=== PATIENT | female | born 1945 | race Caucasian/White ===

== ENCOUNTER 2016-12-02 02:51 | Emergency (ER) | payer SELFPAY ==
[~2016-12-02] VITALS: Ht 157.5 cm; Wt 69.5 kg
[2016-12-02 02:59] VITALS: Ht 157.5 cm; Wt 69.5 kg
--- NOTE | 2016-12-02 03:15 | ERA ---
ER Documentation Chief Complaint Date/Time DATE: 12/02/16 TIME: 03:14 Chief Complaint left leg lac & CWP r/t fall from escalator HPI The patient is a 71-year-old female, presenting to the ER [place] She complained of superficial chest wall abrasion, left leg laceration, left knee pain, left foot pain, left wrist pain. She does not smoke or drink, did not have tetanus injection for many years Past medical history: Diabetes mellitus, hypertension Past surgical history: Appendectomy ROS All systems reviewed and are negative except as per history of present illness. Medications Home Meds Active Scripts Ibuprofen* (Motrin*) 600 Mg Tab, 600 MG PO Q6H Y for PAIN AND OR ELEVATED TEMP, #20 TAB Prov:DOYLE BOLAÑOS MD 12/02/16 Reported Medications Metformin* (Glucophage*) 850 Mg Tablet, 850 MG PO WITH BREAKFAST DINNE, #60 TAB 12/02/16 Calcium Carbonate (CALCIUM) 600 Mg Tablet, 600 MG PO BID, TAB 12/02/16 Irbesartan* (Irbesartan*) 300 Mg Tablet, 300 MG PO BID, TAB 12/02/16 Allergies Allergies: Coded Allergies: No Known Allergy (Unverified , 12/02/16) Physical Exam Vitals Vital Signs Date Time Temp Pulse Resp B/P Pulse Ox O2 Delivery O2 Flow Rate FiO2 12/02/16 02:59 97.1 62 18 217/88 99 Physical Exam Const: No acute distress. Head: Atraumatic. Eyes: Normal Conjunctiva. ENT: Normal External Ears, Nose and Mouth. Neck: Full range of motion. No meningismus. Resp: Clear to auscultation bilaterally. Cardio: Regular rate and rhythm, no murmurs. Superficial chest separation, no crepitus Abd: Soft, non distended, normal bowel sounds, non tender. Skin: No petechiae or rashes. Back: No midline or flank tenderness. Ext: No cyanosis, or edema. Minimal left wrist tenderness, no edema, no laceration. Left knee with crepitus, no ecchymosis, no laceration. Left flank with a small 2 cm laceration with minimal bleeding, no calf tenderness. Left ankle is without any tenderness. Left foot is with minimal edema and tenderness, no laceration Neur: Awake and alert. No focal deficit Psych: Normal Mood and Affect. Results 24 hrs Current Medications Medications (Trade) Dose Ordered Sig/Kuldip Route PRN Reason Start Time Stop Time Status Last Admin Dose Admin Diphtheria/ Tetanus/Acell Pertussis (Adacel) 0.5 ml ONCE ONCE IM* 12/02/16 03:30 12/02/16 03:31 DC 12/02/16 03:46 Acetaminophen/ Hydrocodone Bitart ([place] (5/325)) 1 tab ONCE ONCE PO 12/02/16 03:30 12/02/16 03:31 DC 12/02/16 03:45 Ondansetron HCl (Zofran Odt) 4 mg ONCE STAT ODT 12/02/16 03:24 12/02/16 03:28 DC 12/02/16 03:46 Lidocaine/ Epinephrine (Xylocaine 1%/ Epi) 30 ml ONCE STAT INJ 12/02/16 03:35 12/02/16 03:37 DC Dextrose (D50w Syringe) 50 ml STK-MED ONCE .ROUTE 12/02/16 04:47 12/02/16 04:48 DC Glucagon (Glucagen) 1 mg STK-MED ONCE .ROUTE 12/02/16 05:01 12/02/16 05:02 DC Procedures/[place] [id number] Radiology Main Line: [phone] DIAGNOSTIC IMAGING REPORT Patient: MIRIAM LEW : 1945 Age: 71 Sex: F MR #: [id number] DOS: 12/02/16 0000 Ordering MD: DOYLE BOLAÑOS MD Location: E/R Room/Bed: PROCEDURE: CHEST - 1 VIEW CLINICAL INDICATION: 71-year-old female with chest pain. TECHNIQUE: A single frontal AP portable view of the chest was performed. The images were reviewed on a PACS workstation. COMPARISON: None. FINDINGS: The cardiomediastinal silhouette has a normal appearance. There is no evidence for an infiltrate. There is no evidence for congestive heart failure. There is no evidence for pneumothorax. The osseous structures are intact. IMPRESSION: No evidence for active cardiopulmonary disease. .Cayden Venegas MD, MD Date Time Electronically viewed and signed by .Cayden Venegas MD, MD on 12/02/2016 04:21 .M/ CC: DOYLE BOLAÑOS MD [place] [address] Radiology Main Line: [phone] DIAGNOSTIC IMAGING REPORT Patient: MIRIAM LEW : 1945 Age: 71 Sex: F MR #: [id number] DOS: 12/02/16 0324 Ordering MD: DOYLE BOLAÑOS MD Location: E/R Room/Bed: PROCEDURE: LEFT WRIST - 3 VIEWS CLINICAL INDICATION: 71-year-old female with left wrist pain. TECHNIQUE: AP, lateral and oblique views of the left wrist were performed. The images reviewed on a PACS workstation. COMPARISON: None. FINDINGS: No evidence of fracture, dislocation, or subluxation is seen. There appears to be a small well corticated focus adjacent to the ulnar styloid region presumably from prior trauma. There is narrowing of the radiocarpal joint. The bone marrow mineralization is within normal limits. No radiopaque foreign body is seen. Soft tissue swelling is noted. IMPRESSION: 1. No evidence for acute fracture or dislocation. 2. Small well corticated focus adjacent to the ulnar styloid region presumably from prior fracture. Clinical correlation is necessary. 3. Degenerative changes within the radiocarpal joint. 4. Soft tissue swelling. .Cayden Venegas MD, MD Date Time Electronically viewed and signed by .Cayden Venegas MD, MD on 12/02/2016 04:23 .M/ CC: DOYLE BOLAÑOS MD [place] [address] Radiology Main Line: [phone] DIAGNOSTIC IMAGING REPORT Patient: MIRIAM LEW : 1945 Age: 71 Sex: F MR #: [id number] DOS: 12/02/16323 Ordering MD: DOYLE BOLAÑOS MD Location: E/R Room/Bed: PROCEDURE: LEFT TIBIA/FIBULAR - 4 VIEWS CLINICAL INDICATION: 71-year-old female with left lower extremity pain following trauma. TECHNIQUE: AP, lateral and oblique views of the left tibia and fibula were obtained. The images reviewed on a PACS workstation. COMPARISON: Left knee obtained concurrently. FINDINGS: There is no evidence for an acute fracture or dislocation. There is mild narrowing of the medial, lateral and patellofemoral compartments. The joint spaces otherwise appear intact. The bone marrow mineralization is within normal limits. IMPRESSION: 1. No acute fracture or dislocation. 2. Mild tricompartment knee degenerative changes. .Cayden Venegas MD, MD Date Time Electronically viewed and signed by .Cayden Venegas MD, MD on 12/02/2016 04:24 .M/ CC: DOYLE BOLAÑOS MD [place] [address] Radiology Main Line: [phone] DIAGNOSTIC IMAGING REPORT Patient: MIRIAM LEW : 1945 Age: 71 Sex: F MR #: [id number] DOS: 12/02/164 Ordering MD: DOYLE BOLAÑOS MD Location: E/R Room/Bed: PROCEDURE: LEFT KNEE - 3 VIEWS CLINICAL INDICATION: 71-year-old female with left knee pain following trauma. TECHNIQUE: AP, lateral and oblique view of the left knee were obtained. The images reviewed on a PACS workstation. COMPARISON: Left tibia/fibula obtained concurrently. FINDINGS: There is no evidence for an acute fracture or dislocation. There is mild narrowing of the medial, lateral and patellofemoral compartments with osteophyte formation. The bone marrow mineralization is within normal limits. No significant soft tissue swelling and joint effusion is noted. IMPRESSION: 1. No acute fracture or dislocation. 2. Mild tricompartment degenerative changes. .Cayden Venegas MD, MD Date Time Electronically viewed and signed by .Cayden Venegas MD, MD on 12/02/2016 04:25 .M/ CC: DOYLE BOLAÑOS MD [place] [address] Radiology Main Line: [phone] DIAGNOSTIC IMAGING REPORT Patient: MIRIAM LEW : 1945 Age: 71 Sex: F MR #: [id number] DOS: 12/02/16 0324 Ordering MD: DOYLE BOLAÑOS MD Location: E/R Room/Bed: PROCEDURE: XR Left Foot. CLINICAL INDICATION: Pain, fall TECHNIQUE: AP, lateral and oblique views of the left foot was obtained. The images were reviewed on a PACS workstation. COMPARISON: None. FINDINGS: No fracture or dislocation seen. Posterior calcaneal spur. IMPRESSION: No acute abnormality seen. RPTAT: HJES .Carlos Leal MD, MD Date Time Electronically viewed and signed by .Carlos Leal MD, MD on 12/02/2016 04:23 .S/ CC: DOYLE BOLAÑOS MD MEDICAL MAKING DECISION: The patient is a 70-year-old female, presenting with acute left wrist fracture, acute left leg laceration, acute left chest wall contusion, acute left foot pain. She was treated with Tdap IM, [place] 5 mg p.o. for pain, Zofran ODT for nausea with good response. Blood pressure improved. He was treated with a left wrist Velcro Laceration Repair by me: Anesthesia: 1% lidocaine locally Location: Left leg Tendon/Joint/Nerves: No injury Foreign body: None detected after copious irrigation and exploration Technique: Simple Interrupted Sutures Complexity: No subcutaneous sutures/mucosal repair/ edge excision Post Closure Length: 2cm Patient's bleeding was easily controlled in the department and there is no indication of anemia. No evidence of compartment syndrome, neurologic injury, vascular injury, open joint, tendon laceration, or foreign body. Patient is appropriate for outpatient follow up. 48 hour wound check. Scar minimization instructions given. Departure Diagnosis: Primary Impression: Laceration of lower extremity Additional Impressions: Wrist fracture, left Chest wall contusion Left foot pain Condition: Good Comments She was advised to return in 2 day for wound check, 10 day for suture removal I discussed the findings with the patient. I advised the patient to follow-up with the on-call orthopedist in about 2-3 days, sooner if needed and return if any concern. DOYLE BOLAÑOS MD December 02, 2016 03:15
[2016-12-02] MEDS ORDERED: ONDANSETRON (ODT) 4 MG TAB ODT STA (03:24)
[2016-12-02] MEDS ORDERED: DIPHTH/TET/ACEL PERTUSS (ADULT) 0.5 ML VIAL IM* ONE (03:30)
[2016-12-02] MEDS ORDERED: HYDROCODONE/APAP (5/325) TAB PO ONE (03:30)
[2016-12-02] MEDS ORDERED: LIDOCAINE 1%/EPI 30 ML INJ INJ STA (03:35)
--- NOTE | 2016-12-02 04:21 | RADRPT ---
PROCEDURE: CHEST - 1 VIEW CLINICAL INDICATION: 71-year-old female with chest pain. TECHNIQUE: A single frontal AP portable view of the chest was performed. The images were reviewed on a PACS workstation. COMPARISON: None. FINDINGS: The cardiomediastinal silhouette has a normal appearance. There is no evidence for an infiltrate. There is no evidence for congestive heart failure. There is no evidence for pneumothorax. The osseou s structures are intact. IMPRESSION: No evidence for active cardiopulmonary disease. .Cayden Venegas MD, MD Date Time Electronically viewed and signed by .Cayden Venegas MD, on 12/02/2016 04:21 .M/
--- NOTE | 2016-12-02 04:23 | RADRPT ---
PROCEDURE: XR Left Foot. CLINICAL INDICATION: Pain, fall TECHNIQUE: AP, lateral and oblique views of the left foot was obtained. The images were reviewed on a PACS workstation. COMPARISON: None. FINDINGS: No fracture or dislocation seen. Posterior calcaneal spur. IMPRESSION: No acute abnormality seen. RPTAT: HJES .Carlos Leal MD, MD Date Time Electronically viewed and signed by .Carlos Leal MD, on 12/02/2016 04:23 .S/
--- NOTE | 2016-12-02 04:23 | RADRPT ---
PROCEDURE: LEFT WRIST - 3 VIEWS CLINICAL INDICATION: 71-year-old female with left wrist pain. TECHNIQUE: AP, lateral and oblique views of the left wrist were performed. The images reviewed on a PACS workstation. COMPARISON: None. FINDINGS: No evidence of fracture, dislocation, or subluxation is seen. There appears to be a small well corti cated focus adjacent to the ulnar styloid region presumably from prior trauma. There is narrowing o f the radiocarpal joint. The bone marrow mineralization is within normal limits. No radiopaque for eign body is seen. Soft tissue swelling is noted. IMPRESSION: 1. No evidence for acute fracture or dislocation. 2. Small well corticated focus adjacent to the ulnar styloid region presumably from prior fracture. Clinical correlation is necessary. 3. Degenerative changes within the radiocarpal joint. 4. Soft tissue swelling. .Cayden Venegas MD, Date Time Electronically viewed and signed by .Cayden Venegas MD, on 12/02/2016 04:23 .M/
--- NOTE | 2016-12-02 04:24 | RADRPT ---
PROCEDURE: LEFT TIBIA/FIBULAR - 4 VIEWS CLINICAL INDICATION: 71-year-old female with left lower extremity pain following trauma. TECHNIQUE: AP, lateral and oblique views of the left tibia and fibula were obtained. The images re viewed on a PACS workstation. COMPARISON: Left knee obtained concurrently. FINDINGS: There is no evidence for an acute fracture or dislocation. There is mild narrowing of the medial, l ateral and patellofemoral compartments. The joint spaces otherwise appear intact. The bone marrow mineralization is within normal limits. IMPRESSION: 1. No acute fracture or dislocation. 2. Mild tricompartment knee degenerative changes. .Cayden Venegas MD, MD Date Time Electronically viewed and signed by .Cayden Venegas MD, on 12/02/2016 04:24 .Derick/
--- NOTE | 2016-12-02 04:25 | RADRPT ---
PROCEDURE: LEFT KNEE - 3 VIEWS CLINICAL INDICATION: 71-year-old female with left knee pain following trauma. TECHNIQUE: AP, lateral and oblique view of the left knee were obtained. The images reviewed on a PACS workstation. COMPARISON: Left tibia/fibula obtained concurrently. FINDINGS: There is no evidence for an acute fracture or dislocation. There is mild narrowing of the medial, l ateral and patellofemoral compartments with osteophyte formation. The bone marrow mineralization is within normal limits. No significant soft tissue swelling and joint effusion is noted. IMPRESSION: 1. No acute fracture or dislocation. 2. Mild tricompartment degenerative changes. .Cayden Venegas MD, MD Date Time Electronically viewed and signed by .Cayden Venegas MD, on 12/02/2016 04:25 .[place]
[2016-12-02] MEDS ORDERED: CALC600T5 PO (04:42)
[2016-12-02] MEDS ORDERED: IRBE300T15 PO (04:42)
[2016-12-02] MEDS ORDERED: METF-480 PO (04:42)
[2016-12-02] MEDS ORDERED: IBUP-1542 PO (04:43)
[2016-12-02] MEDS ORDERED: DEXTROSE 50% 50 ML SYRINGE ONE (04:47)
[2016-12-02] MEDS ORDERED: GLUCAGON 1 MG INJ ONE (05:01)
[2016-12-02 05:36] VITALS: BP 109/53; PULSE 58; RESP 18; TEMP 98.2
== END 2016-12-02 05:39 | disposition home or self-care (01) ==
LOC: E/R 02:51
DX: S81.812A Laceration without foreign body, left lower leg, initial encounter (principal); S20.219A Contusion of unspecified front wall of thorax, initial encounter; S62.102A Fracture of unspecified carpal bone, left wrist, initial encounter for closed fracture; I10 Essential (primary) hypertension; E11.9 Type 2 diabetes mellitus without complications; R11.0 Nausea; W10.0XXA Fall (on)(from) escalator, initial encounter; Y92.520 Airport as the place of occurrence of the external cause; Z23 Encounter for immunization; Z79.84 Long term (current) use of oral hypoglycemic drugs
CPT/HCPCS: 12001; 29125; 71010; 73110; 73562; 73590; 73630; 90471; 90715; 99284; J1610

== ENCOUNTER 2016-12-08 11:58 | Emergency (ER) | payer SELFPAY ==
[~2016-12-08] VITALS: Ht 152.4 cm; Wt 69.0 kg
[~2016-12-08 11:58] MED LIST: CALC600T5 PO; IBUP-1542 PO; IRBE300T15 PO; METF-480 PO
[2016-12-08 12:01] VITALS: Ht 152.4 cm; Wt 69.0 kg
[2016-12-08] MEDS ORDERED: CEPH-443 PO (14:29)
--- NOTE | 2016-12-08 14:56 | ERD ---
ER Documentation Chief Complaint Date/Time DATE: 12/08/16 TIME: 14:50 Chief Complaint SUTURE REMOVAL @ LEFT CHIN AREA (MARIA TERESA ELIAS PA-C) HPI 71-year-old female patient with a past medical history of diabetes and hypertension presents to the ED for a suture removal. Reports that she was initially seen here on December 02, 2016, 8 days ago after a [place] Reports that she had a full workup with x-rays and sustained a possible left wrist fracture. Reports that she is here to remove the sutures. Denies any fever, chills, abdominal pain, nausea, vomiting , chest pain, shortness of breath, increased redness or swelling, weakness, numbness or tingling. (MARIA TERESA ELIAS PA-C) ROS All systems reviewed and are negative except as per history of present illness. (MARIA TERESA ELIAS PA-C) Medications Home Meds Active Scripts Cephalexin* (Keflex*) 500 Mg Capsule, 500 MG PO QID for 7 Days, CAP Prov:MARIA TERESA ELIAS PA-C 12/08/16 Ibuprofen* (Motrin*) 600 Mg Tab, 600 MG PO Q6H Y for PAIN AND OR ELEVATED TEMP, #20 TAB Prov:DOYLE BOLAÑOS MD 12/02/16 Reported Medications Metformin* (Glucophage*) 850 Mg Tablet, 850 MG PO WITH BREAKFAST DINNE, #60 TAB 12/02/16 Calcium Carbonate (CALCIUM) 600 Mg Tablet, 600 MG PO BID, TAB 12/02/16 Irbesartan* (Irbesartan*) 300 Mg Tablet, 300 MG PO BID, TAB 12/02/16 Allergies Allergies: Coded Allergies: No Known Allergy (Unverified , 12/08/16) PMhx/Soc History of Surgery: Yes (appendectomy) Hx Alcohol Use: No Hx Substance Use: No Hx Tobacco Use: No Smoking Status: Never smoker (MARIA TERESA ELIAS PA-C) Physical Exam Vitals Vital Signs Date Time Temp Pulse Resp B/P Pulse Ox O2 Delivery O2 Flow Rate FiO2 12/08/16 12:01 97.6 92 19 140/67 99 (ROSALINA CONCEPCION MD) Physical Exam Const: [id number]-[id number], well-nourished. In no acute distress. Head: Atraumatic, normocephalic Eyes: Normal Conjunctiva without injection ENT: Normal external ear, nose and mouth. Neck: Full range of motion. No meningismus. Resp: Clear to auscultation bilaterally. No wheezing, rhonchi, rales, or crackles. No accessory muscle use. No retractions. Cardio: Regular rate and rhythm, no murmurs Skin: No petechiae or rashes. 2 cm linear vertical laceration noted of the left soto that is well healing with 3 sutures noted. Slight surrounding erythema noted. No edema noted. Back: No midline tenderness. No CVA tenderness. Ext: No cyanosis, or edema. Cap refill less than 2 seconds. Distal pulses intact bilaterally. Slight edema noted over the left wrist with no surrounding erythema. Full range of motion noted of bilateral upper and lower extremities with flexion and extension. Neur: Awake and alert. Normal gait and coordination. Muscle strength 5/5. Sensation intact bilaterally. Psych: Normal Mood and Affect (MARIA TERESA ELIAS PA-C) Procedures/MDM This is a 71-year-old female patient with a past medical history of diabetes and hypertension presents to the ED for a suture removal. Patient is afebrile and nontoxic-appearing. Patient gave consent to remove the sutures at this time. 3 sutures removed without difficulty. Since patient is diabetic and diabetic patients are prone to poor wound healing, patient is also having some slight erythema surrounding the wound site, a course of antibiotics, Keflex will be prescribed to patient. Low suspicion for deep space infection, sepsis. Low suspicion for scabies, SJS/TEN, erythema multiforme, sepsis, cellulitis, necrotizing fascitis, gangrene, meningococcemia or other emergent conditions. Patient was strictly instructed to follow-up with an orthopedic physician for the possible prior fracture noted of the left wrist. Patient has full range of motion with flexion and extension. Patient is neurovascularly intact pre-and post Velcro splint that was placed 8 days ago. Patient's extremity symptoms have stabilized while they have been evaluated in the department and are appropriate for outpatient follow up. No evidence of dislocations, compartment syndrome, neurologic injury, vascular injury, open joint, open fracture, tendon laceration, septic arthritis, osteomyelitis, DVT, foreign body, or other emergent conditions. Discharge medications: Keflex Follow up with primary care physician in 1-2 days. Instructed patient to return to the ED sooner for any worsening symptoms. Patient's questions were answered. Patient understood and agreed with discharge plan. Patient discharged stable. (MARIA TERESA ELIAS PA-C) [id number]-[id number]-old female presents for suture removal. Agree with detailed history of present illness the mid-level provider. Objective-patient is afebrile. Some slight redness on the left soto laceration. There is no bony tenderness or deformities or streaking or induration. Sutures were removed without complications. Assessment-patient here for suture removal left soto laceration with possible mild early infection without signs of sepsis, signs or symptoms to suggest osteomyelitis, additional complications. Plan-patient will be discharged home with Keflex and instructions for further wound care. She should return for worsening redness, fevers, new worsening symptoms with primary care doctor . (ROSALINA CONCEPCION MD) Departure Diagnosis: Primary Impression: Encounter for removal of sutures Condition: Stable Patient Instructions: Suture Removal, No Complication Referrals: [facility] Ur[facility] Care 7 a.m.- 11 p.m. Every Day of the Week NO APPOINTMENT OR AUTHORIZATION NEEDED [facility] [place] Hours: Mon-Fri 9:00 AM - 5:00 PM [facility] () Usted se aguilar hecho un examen mdico de control que le indica que no est en brandi condicin que requiera tratamiento urgente en el Departamento de Emergencia. Un estudio ms profundo y el tratamiento de ambrocio condicin pueden esperar sin ningn riesgo hasta que usted sea atendida/o en el consultorio de ambrocio mdico o brandi cl perla. Es responsabilidad suya arreglar brandi mathieu para el seguimiento del emilie. MANEJO DE CONDICIONES NO URGENTES EN EL FUTURO 1) Si usted tiene un mdico de atencin primaria: Usted debera llamar a ambrocio mdico de atencin primaria antes de venir al departamento de emergencia. Despus de las horas de consultorio, ambrocio doctor o ambrocio asociado/a est disponible por telfono. El mdico o enfermero de ottoniel en el servicio telefnico puede asesorarle por karel medio para atender el problema, o emilie contrario se puede programar brandi mathieu. 2) Si usted no tiene un mdico de atencin primaria: Llame al mdico o clnica de referencia que aparece abajo geoff las horas de consultorio para hacer brandi mathieu para que le vean. CLINICAS: [facility] [phone] [facility] 011 [phone] [facility] [phone] [place] [address] [phone] [place] [id number] [phone] [facility] [phone] [address] [facility]. [facility] () Usted se aguilar hecho un examen mdico de control que le indica que no est en brandi condicin que requiera tratamiento urgente en el Departamento de Emergencia. Un estudio ms profundo y el tratamiento de ambrocio condicin pueden esperar sin ningn riesgo hasta que usted sea atendida/o en el consultorio de ambrocio mdico o rbandi cl perla. Es responsabilidad suya arreglar brandi mathieu para el seguimiento del emilie. MANEJO DE CONDICIONES NO URGENTES EN EL FUTURO 1) Si usted tiene un mdico de atencin primaria: Usted debera llamar a ambrocio mdico de atencin primaria antes de venir al departamento de emergencia. Despus de las horas de consultorio, ambroico doctor o ambrocio asociado/a est disponible por telfono. El mdico o enfermero de ottoniel en el servicio telefnico puede asesorarle por karel medio para atender el problema, o emilie contrario se puede programar brandi mathieu. 2) Si usted no tiene un mdico de atencin primaria: Llame al mdico o condado institucions de referencia que aparece abajo geoff las horas de consultorio para hacer brandi mathieu para que le vean. SI USTED NO PUEDE PAGAR PARA ROBERTH UN MEDICO puede ir a: [facility] [address] [place] [address] [facility] [address] [place] [address] [facility] [address] [place] [address] PARA NAT [facility] [address] [place], [place] [id number] Additional Instructions: Seguimiento con mdico ortopdico hoy/maana para evaluacin adicional y tratamiento. Llenar la prescripcin de antibiticos. Retorno de cualquier empeoramiento sntomas tales aguilar fiebre, debilidad, empeoramiento de enrojecimiento o hinchazn. MARIA TERESA ELIAS PA-C Dec 08, 2016 14:56 ROSALINA CONCEPCION MD Dec 09, 2016 19:40
== END 2016-12-08 14:43 | disposition home or self-care (01) ==
LOC: FTE 11:58
DX: Z48.02 Encounter for removal of sutures (principal); I10 Essential (primary) hypertension; E11.9 Type 2 diabetes mellitus without complications; Z79.84 Long term (current) use of oral hypoglycemic drugs
CPT/HCPCS: 99283